=== PATIENT | male | born 1950 | race Caucasian/White ===

== ENCOUNTER 2020-08-11 06:49 | Outpatient (CLI) | payer MEDICARE ==
[2020-08-12 06:30] LABS: SARS-CoV-2 MS2 Positive; SARS-CoV-2 N Gene Negative; SARS-CoV-2 S Gene Negative; SARS-CoV-2 by NAA Not Detected (NotDetected); SARS-CoV-2 orf1ab Negative
== END 2020-08-11 06:50 | disposition home or self-care (01) ==
LOC: EDBD → LABBT 06:49
PROVIDERS: ATTEND Neurological Surgery
DX: Z01.812 Encounter for preprocedural laboratory examination (principal); M48.062 Spinal stenosis, lumbar region with neurogenic claudication; Z20.828 Contact with and (suspected) exposure to other viral communicable diseases
CPT/HCPCS: 87635; U0003

== ENCOUNTER 2020-08-14 07:38 | Day surgery (SDC) | payer MEDICARE ==
[2020-08-13 09:57] VITALS: BMI 27.1
--- NOTE | 2020-08-13 14:49 | HP ---
REASON FOR HISTORY AND PHYSICAL: Surgery on 08/14/2020, case #[id number], laminectomy and foraminotomy. HISTORY OF PRESENT ILLNESS: Mr. Navarro is a 69-year-old male with a chief complaint of lower back and bilateral leg pain. This pain has been going on for 1 year now. He describes the right leg pain more than the left leg pain. Pain radiates into his bilateral gluteal muscles, lateral thigh, anterior foot, and all his toes. Reports some bilateral ankle weakness. He can walk about 1 block before he has to sit or bend forward to alleviate some of his pain. He has tried spinal epidural injections, physical therapy, and medications with no lasting relief of his symptoms. He denies any bladder or bowel dysfunction. REVIEW OF SYSTEMS: CONSTITUTIONAL: Denies fever or chills. ENT: Denies change in vision or hearing. CARDIAC: Denies chest pain, shortness of breath, or diaphoresis. PULMONARY: Denies shortness of breath, cough, or hemoptysis. GI: Denies fecal incontinence, abdominal pain, nausea, vomiting, diarrhea, or change in stool formation and consistency. : Denies urinary incontinence, trouble with urination, frequency of urination, or bloody urine. SKIN: Denies skin rash, bruising, bleeding, or skin masses. MUSCULOSKELETAL: As per history of present illness. NEUROLOGICAL: As per history of present illness. PSYCHOLOGICAL: As per history of present illness. PAST MEDICAL HISTORY: 1. High cholesterol. 2. High blood pressure. 3. Thyroid disease. PAST SURGICAL HISTORY: Bilateral carpal tunnel release. HOSPITALIZATIONS: Denies past hospitalizations. FAMILY HISTORY: Father , diagnosed with diabetes, hypertension. Mother , diagnosed with hypertension. SOCIAL HISTORY: He is a nonsmoker. He occasionally drinks 1 to 2 drinks a month and denies illicit drugs. MEDICATIONS: 1. Flonase 1 spray p.r.n. 2. Pregabalin 100 mg. 3. Pravastatin 20 mg. 4. Levothyroxine 25 mcg. 5. Metformin 1000 mg. 6. Benicar 5 mg. 7. Tramadol 50 mg. 8. Gabapentin 300 mg. 9. Tizanidine 4 mg. ALLERGIES: NO KNOWN DRUG ALLERGIES. PHYSICAL EXAMINATION: VITAL SIGNS: Weight 195 pounds, height 5 feet 11 inches, BMI 27.19. HEENT: Pupils are equal. Extraocular movements are intact. NECK: Soft, supple. No masses are noted. Range of motion is intact and nonpainful. NEUROLOGICAL: Awake, alert, and oriented x3. Memory, attention, fund of knowledge normal. Cranial nerves grossly intact. Motor exam; normal strength in the iliopsoas, quadriceps, hamstrings, anterior tib, EHL, gastrocnemius, and toe flexors. Sensory exam; there is no dermatomal sensory loss in L1, L2, L3, L4, L5, or S1. Reflex exam; no clonus. IMAGING DATA: MRI of the L-spine; L3-L4 canal stenosis with left foraminal stenosis, L4-L5 canal stenosis with right foraminal stenosis. X-ray of the L-spine, flexion-extension is stable. 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 PLAN: 1. Laminectomy at L3-L4, L4-L5. 2. Anesthesia clearance. 3. Preop labs; CBC, PT, PTT, and COVID-19. INFORMED CONSENT: We discussed the indications, risks, benefits, alternatives, and expected results from surgery. The risks discussed included, but were not limited to, bleeding, infection, CSF leak, nerve damage, weakness, incontinence, cauda equina injury, arachnoiditis, paralysis, ventilator dependency, wheelchair dependency, loss of vision, cardiopulmonary complications of anesthesia, or . Long-term complications discussed included, but were not limited to, spinal instability and future surgery. He understands the risks and is willing to proceed. Job ID: [id number]
[2020-08-14] MEDS ORDERED: Clindamycin/D5W 900 mg/50 ml Premix Bag ONE ×2 (09:45→16:37)
[2020-08-14] MEDS ORDERED: Levofloxacin 500 mg/D5W 100 ml Premix Bag ONE (09:45)
[2020-08-14] MEDS ORDERED: Thrombin 5000 UNITS/5 ML VIAL ONE (09:48)
[2020-08-14] MEDS ORDERED: EPINEPHrine 1 MG/ML AMP ONE (09:48)
[2020-08-14] MEDS ORDERED: Bupivacaine PF 0.5% 30 ML VIAL ONE (09:48)
[2020-08-14] MEDS ORDERED: Fentanyl 100 MCG/2 ML VIAL ONE ×4 (10:25→13:44)
[2020-08-14] MEDS ORDERED: Lidocaine 1% PF 5 ML VIAL ONE (10:47)
[2020-08-14] MEDS ORDERED: PROPOFOL 200 MG/20 ML VIAL ONE (10:47)
[2020-08-14] MEDS ORDERED: ePHEDrine 50 MG/ML VIAL ONE (10:47)
[2020-08-14] MEDS ORDERED: PHENYLEPHRINE-NS 100 MCG/ML 10 ML SYRINGE ONE (10:47)
[2020-08-14] MEDS ORDERED: Ondansetron PF 4 MG/2 ML Vial ONE ×2 (10:47→13:25)
[2020-08-14] MEDS ORDERED: Dexamethasone 20 MG/5 ML VIAL ONE (10:47)
[2020-08-14] MEDS ORDERED: Ketorolac Tromethamine 30 MG/ML VIAL ONE (10:47)
[2020-08-14] MEDS ORDERED: Rocuronium Bromide 10 MG/ML (10ML VIAL) ONE (10:47)
[2020-08-14] MEDS ORDERED: Glycopyrrolate 0.2 MG/ML 5 ML SYRINGE ONE (10:47)
[2020-08-14] MEDS ORDERED: SUGAMMADEX SODIUM 200 MG/2 ML VIAL ONE (13:00)
--- NOTE | 2020-08-14 13:12 | OP ---
DATE OF PROCEDURE: 08/14/2020 FIELD COUNSEL: Anthony Timmons PA-C PREOPERATIVE INDICATION: Treat pain and prevent neurological deterioration. PREOPERATIVE DIAGNOSIS: Two-level lumbar stenosis with neurogenic claudication and radicular pain. POSTOPERATIVE DIAGNOSIS: Two-level lumbar stenosis with neurogenic claudication and radicular pain. PROCEDURE PERFORMED: Decompressive laminectomy with medial facetectomy and foraminotomy at L3-L4 and L4-L5. PREOPERATIVE MEDICATIONS: Ancef 2 g IV. DRAIN NUMBER: Zero. DRAIN TYPE: None. DESCRIPTION OF PROCEDURE: The patient was brought to the operating room. General endotracheal anesthesia was induced. We positioned the patient prone with the chest and hips supported by gel-filled chest rolls on the operating table. A lateral fluoro radiograph was used to plan our incision. The lumbar skin was sterilely prepped and draped. We opened with a midline incision with a 10 blade knife and controlled bleeding with bipolar and monopolar cautery. We used monopolar cautery to dissect through subcutaneous tissues to the thoracodorsal fascia. We incised the fascia in the midline and reflected paraspinal muscles off the spinous process and lamina of L3, L4, and L5. A self-retaining retractor was placed. A lateral fluoro radiograph confirmed the levels upon which we were operating. We then used an Adson rongeur to remove the spinous processes and a high-speed drill to thin the lamina at L3 and L4 and the top of L5. Using a Kerrison rongeur, we fashioned a laminectomy down the midline. We widened our laminectomy defect until we were in line with the medial portion of the pedicles of L3, L4, and L5. This required medial facetectomy at L3-L4 and L4-L5. With the canal decompression secure, we turned our attention to the foramina. A Mccollum ball probe was interrupted in passing out of the spine with the L4 nerve root on the right side and the L3 nerve root on the left side. I used foraminotomy Kerrison's to widen the foramen around each of these nerves. We ensured that a Mccollum ball probe could pass through the lateral recess and out the foramen with each nerve we decompressed. We then irrigated with bacitracin irrigation. We waxed the bone edges. We infused local anesthetic in the paraspinal muscles. We treated the wound with vancomycin powder after copious irrigation. We closed in anatomical layers. This was a clean case, no contamination. Job ID: [id number]
[2020-08-14] MEDS ORDERED: Tamsulosin HCl 0.4 MG CAP ONE (13:26)
== END 2020-08-14 17:28 | disposition home or self-care (01) ==
LOC: SDC 07:38 → EDBD 14:00 → SDC 17:28
PROVIDERS: ATTEND Neurological Surgery
PROC: 01NB0ZZ Release Lumbar Nerve, Open Approach (ICD-10-PCS; principal; 2020-08-14)
DX: M48.062 Spinal stenosis, lumbar region with neurogenic claudication (principal); M54.16 Radiculopathy, lumbar region; I10 Essential (primary) hypertension; E78.5 Hyperlipidemia, unspecified; E03.9 Hypothyroidism, unspecified; E78.00 Pure hypercholesterolemia, unspecified; Z79.84 Long term (current) use of oral hypoglycemic drugs; Z79.899 Other long term (current) drug therapy; Z88.0 Allergy status to penicillin
CPT/HCPCS: 76000; J0171; J1100; J1885; J1956; J2405; J2704; J3010; J3370; J3490; S0020

== ENCOUNTER 2021-11-03 11:02 | Outpatient (CLI) | payer MEDICARE ==
[2021-11-03 12:06] LABS: Mean Corpuscular HGB CONC 34.9 g/dL (32.0-36.0); Mean Corpuscular Hemoglobin 32.9 pg (27.0-33.0); Mean Corpuscular Volume 94.3 fl (81.2-95.1); Mean Platelet Volume 9.1 fl (7.4-10.4); Platelet Count 279 10x3/uL (150-450); RBC Distribution Width 12.1 % (11.5-14.5); Red Blood Cell (RBC) Count 4.56 10x6/uL (4.32-5.72)
[2021-11-03 12:23] LABS: Anion Gap 17 mmol/L (10-20); BUN (Urea Nitrogen) 21 mg/dL (8.4-25.7); Calc. Creatinine Clearance 0 mL/min (70-130); Calcium 9.9 mg/dL (7.8-10.44); Carbon Dioxide 25 mmol/L (23-31); Chloride 102 mmol/L (98-107); Glucose 110 mg/dL (80-115); Potassium 4.5 mmol/L (3.5-5.1); Sodium 139 mmol/L (136-145)
[2021-11-03 12:25] LABS: PTT 24.7 sec (22.0-33.0); Prothrombin Time 10.9 sec (9.5-12.1)
[2021-11-03 21:51] LABS: SARS-CoV-2 PCR by NAA Not Detected (NotDetected)
== END 2021-11-03 11:03 | disposition home or self-care (01) ==
LOC: LABBT 11:02
PROVIDERS: ATTEND Neurological Surgery
DX: Z01.818 Encounter for other preprocedural examination (principal); M48.061 Spinal stenosis, lumbar region without neurogenic claudication; M54.16 Radiculopathy, lumbar region; Z20.822 Contact with and (suspected) exposure to COVID-19
CPT/HCPCS: 80048; 85027; 85610; 85730; 93005; U0003; U0005; 93010